=== PATIENT | male | born 1970 | race Caucasian/White ===

== ENCOUNTER 2017-06-21 01:49 | Emergency (ER) | payer OTHER ==
[~2017-06-21] VITALS: Ht 180.3 cm; Wt 90.0 kg
[~2017-06-21 01:49] MED LIST: CLEO300C2 PO; IBUP800T23 PO; Z.0.NO CURRENT MEDS
[2017-06-21 01:57] VITALS: BP 139/85; PULSE 85; RESP 18; TEMP 98.5; O2SAT 98
[2017-06-21 02:17] LABS: AUTOMATED NEUTROPHIL # 7.1 TH/MM3 (1.8-7.7); BASOPHIL % 0.4 % (0.0-2.0); EOSINOPHIL # 0.4 TH/MM3 (0-0.4); EOSINOPHIL % 4.1 % (0.0-4.0); HEMATOCRIT 39.1 % (39.0-51.0); HEMOGLOBIN 13.9 GM/DL (13.0-17.0); LYMPH % 19.1 % (9.0-44.0); MEAN CELL VOLUME 98.7 FL (80.0-100.0); MEAN CORPUSCULAR HGB CONC 35.4 % (32.0-36.0); MEAN PLATELET VOLUME 7.3 FL (7.0-11.0); MONO % 6.7 % (0.0-8.0); MONOCYTE # 0.7 TH/MM3 (0-0.9); NEUT % 69.7 % (16.0-70.0); PLATELET COUNT 305 TH/MM3 (150-450); RED BLOOD COUNT 3.96 MIL/MM3 (4.50-5.90); RED CELL DISTRIBUTION WIDTH 12.8 % (11.6-17.2); WHITE BLOOD COUNT 10.3 TH/MM3 (4.0-11.0)
[2017-06-21 02:41] LABS: ALBUMIN 3.2 GM/DL (3.4-5.0); ALT (GPT) 25 U/L (12-78); AST (GOT) 26 U/L (15-37); BICARBONATE 27.3 MEQ/L (21.0-32.0); BLOOD UREA NITROGEN 5 MG/DL (7-18); CALCIUM 8.1 MG/DL (8.5-10.1); CHLORIDE 104 MEQ/L (98-107); CREATININE 0.96 MG/DL (0.60-1.30); GLOMERULAR FILTRATION RATE 83 ML/MIN (>89); GLUCOSE,RANDOM 103 MG/DL (74-106); SODIUM (NA) 141 MEQ/L (136-145)
[2017-06-21 02:44] LABS: ACETAMINOPHEN LESS THAN 2.0 MCG/ML (10.0-30.0); ALKALINE PHOSPHATASE 41 U/L (45-117); TOTAL BILIRUBIN ADULT 0.7 MG/DL (0.2-1.0); TOTAL PROTEIN 6.3 GM/DL (6.4-8.2)
[2017-06-21 03:40] VITALS: BP 110/74; PULSE 67; RESP 18; TEMP 98.7; O2SAT 100
[2017-06-21] MEDS ORDERED: POTASSIUM CHLORIDE 10 MEQ CAP PO ONE (03:45)
--- NOTE | 2017-06-21 03:50 | PD ---
HPI Chief Complaint: Psychiatric Symptoms Time Seen by Provider: 03:44 Travel History International Travel<30 days: No Contact w/Intl Traveler<30days: No Traveled to known affect area: No History of Present Illness HPI 47-year-old white male presents emergency department under [place] act by PD. Patient had contacted police advising them that people were out after him. Patient informs me that he is playing a game called FONU2. He states that your name is placed on a list and people who were playing the game will attempt to change to down and hit you with a car, punch U, knock you down or do other various things to you. The patient here denies any drugs. Patient does drink alcohol on occasion. He does smoke cigarettes. He denies any acute medical complaints. No toxic ingestions. No suicidal or homicidal ideation. PFSH Past Medical History Medical History: Denies Significant Hx Diminished Hearing: No Tetanus Vaccination: Unknown Influenza Vaccination: No Past Surgical History Genitourinary Surgery: Yes (hernia) Social History Alcohol Use: Yes Tobacco Use: Yes Substance Use: No Allergies-Medications (Allergen,Severity, Reaction): Coded Allergies: No Known Allergies (Unverified , 09/08/12) Reported Meds & Prescriptions Reported Meds & Active Scripts Active Ibuprofen 800 Mg Tab 800 Mg PO Q6HPRN PRN Cleocin (Clindamycin HCl) 300 Mg Cap 300 Mg PO QID Reported No Current Meds (Miscellaneous Medication) Misc Review of Systems General / Constitutional: No: Fever Eyes: No: Visual changes HENT: No: Headaches Cardiovascular: No: Chest Pain or Discomfort Respiratory: No: Shortness of Breath Gastrointestinal: No: Abdominal Pain Genitourinary: No: Dysuria Musculoskeletal: No: Pain Skin: No Rash Neurologic: No: Weakness Psychiatric: Positive: Disorder of Thought, No: Anxiety, Depression, Suicidal Ideations, Mood Disorder, Substance Abuse, Homicidal Ideation Endocrine: No: Polydipsia Hematologic/Lymphatic: No: Easy Bruising Physical Exam Narrative GENERAL: Well-nourished, well-developed patient. SKIN: Warm and dry. HEAD: Normocephalic and atraumatic. EYES: No scleral icterus. No injection or drainage. ENT: No nasal drainage noted. Mucous membranes pink. Airway patent. NECK: Supple, trachea midline. Moves head freely without obvious discomfort. CARDIOVASCULAR: Regular rate and rhythm without murmurs, gallops, or rubs. RESPIRATORY: Breath sounds equal bilaterally. No accessory muscle use. GASTROINTESTINAL: Abdomen soft, non-tender, nondistended. EXTREMITIES: No cyanosis or edema. BACK: Nontender without obvious deformity. No CVA tenderness. NEURO: Patient is alert and oriented. no sensorimotor deficits. Nonfocal. Normal speech. PSYCH: Patient is acutely delusional. Data Data Last Documented VS Vital Signs Date Time Temp Pulse Resp B/P (MAP) Pulse Ox O2 Delivery O2 Flow Rate FiO2 06/21/17 03:40 98.7 67 18 110/74 (86) 100 Room Air Orders Orders Complete Blood Count With Diff (06/21/17 02:06) Comprehensive Metabolic Panel (06/21/17 02:06) Psych Screen (06/21/17 02:06) Drug Screen, Random Urine (06/21/17 02:06) Alcohol (Ethanol) (06/21/17 02:06) Salicylates (Aspirin) (06/21/17 02:06) Tylenol (Acetaminophen) (06/21/17 02:06) Potassium Chloride (Kcl) (06/21/17 03:45) Labs Laboratory Tests Test 06/21/17 02:02 06/21/17 02:10 White Blood Count 10.3 TH/MM3 Red Blood Count 3.96 MIL/MM3 Hemoglobin 13.9 GM/DL Hematocrit 39.1 % Mean Corpuscular Volume 98.7 FL Mean Corpuscular Hemoglobin 35.0 PG Mean Corpuscular Hemoglobin Concent 35.4 % Red Cell Distribution Width 12.8 % Platelet Count 305 TH/MM3 Mean Platelet Volume 7.3 FL Neutrophils (%) (Auto) 69.7 % Lymphocytes (%) (Auto) 19.1 % Monocytes (%) (Auto) 6.7 % Eosinophils (%) (Auto) 4.1 % Basophils (%) (Auto) 0.4 % Neutrophils # (Auto) 7.1 TH/MM3 Lymphocytes # (Auto) 2.0 TH/MM3 Monocytes # (Auto) 0.7 TH/MM3 Eosinophils # (Auto) 0.4 TH/MM3 Basophils # (Auto) 0.0 TH/MM3 CBC Comment DIFF FINAL Differential Comment Blood Urea Nitrogen 5 MG/DL Creatinine 0.96 MG/DL Random Glucose 103 MG/DL Total Protein 6.3 GM/DL Albumin 3.2 GM/DL Calcium Level 8.1 MG/DL Alkaline Phosphatase 41 U/L Aspartate Amino Transf (AST/SGOT) 26 U/L Alanine Aminotransferase (ALT/SGPT) 25 U/L Total Bilirubin 0.7 MG/DL Sodium Level 141 MEQ/L Potassium Level 3.1 MEQ/L Chloride Level 104 MEQ/L Carbon Dioxide Level 27.3 MEQ/L Anion Gap 10 MEQ/L Estimat Glomerular Filtration Rate 83 ML/MIN Salicylates Level LESS THAN 1.7 MG/DL Acetaminophen Level LESS THAN 2.0 MCG/ML Ethyl Alcohol Level LESS THAN 3 MG/DL Urine Opiates Screen NEG Urine Barbiturates Screen NEG Urine Amphetamines Screen NEG Urine Benzodiazepines Screen NEG Urine Cocaine Screen NEG Urine Cannabinoids Screen NEG MDM Medical Decision Making Medical Screen Exam Complete: Yes Emergency Medical Condition: Yes Medical Record Reviewed: Yes Interpretation(s) Laboratory Tests Test 06/21/17 02:02 06/21/17 02:10 White Blood Count 10.3 TH/MM3 Red Blood Count 3.96 MIL/MM3 Hemoglobin 13.9 GM/DL Hematocrit 39.1 % Mean Corpuscular Volume 98.7 FL Mean Corpuscular Hemoglobin 35.0 PG Mean Corpuscular Hemoglobin Concent 35.4 % Red Cell Distribution Width 12.8 % Platelet Count 305 TH/MM3 Mean Platelet Volume 7.3 FL Neutrophils (%) (Auto) 69.7 % Lymphocytes (%) (Auto) 19.1 % Monocytes (%) (Auto) 6.7 % Eosinophils (%) (Auto) 4.1 % Basophils (%) (Auto) 0.4 % Neutrophils # (Auto) 7.1 TH/MM3 Lymphocytes # (Auto) 2.0 TH/MM3 Monocytes # (Auto) 0.7 TH/MM3 Eosinophils # (Auto) 0.4 TH/MM3 Basophils # (Auto) 0.0 TH/MM3 CBC Comment DIFF FINAL Differential Comment Blood Urea Nitrogen 5 MG/DL Creatinine 0.96 MG/DL Random Glucose 103 MG/DL Total Protein 6.3 GM/DL Albumin 3.2 GM/DL Calcium Level 8.1 MG/DL Alkaline Phosphatase 41 U/L Aspartate Amino Transf (AST/SGOT) 26 U/L Alanine Aminotransferase (ALT/SGPT) 25 U/L Total Bilirubin 0.7 MG/DL Sodium Level 141 MEQ/L Potassium Level 3.1 MEQ/L Chloride Level 104 MEQ/L Carbon Dioxide Level 27.3 MEQ/L Anion Gap 10 MEQ/L Estimat Glomerular Filtration Rate 83 ML/MIN Salicylates Level LESS THAN 1.7 MG/DL Acetaminophen Level LESS THAN 2.0 MCG/ML Ethyl Alcohol Level LESS THAN 3 MG/DL Urine Opiates Screen NEG Urine Barbiturates Screen NEG Urine Amphetamines Screen NEG Urine Benzodiazepines Screen NEG Urine Cocaine Screen NEG Urine Cannabinoids Screen NEG Differential Diagnosis MDM: High Differential diagnoses: Schizophrenia, schizoaffective disorder, bipolar, anxiety, depression, adjustment reaction, mood disorder NOS, ODD, depressive disorder NOS, dementia, dementia with agitation, psychosis NOS, substance induced mood disorder, DMDD, Asperger syndrome, infection,electrolyte abnormality, malingering. Narrative Course Mental health screening discussed with the patient. Psychiatric screen ordered. Patient's potassium 3.1. He is given 40 mEq of potassium p.o. The patient has been medically cleared. This is medical clearance for psychiatric admission, hypokalemia Diagnosis Primary Impression: Medical clearance for psychiatric admission Additional Impression: Hypokalemia Condition: Stable Roqeu Thompson June 21, 2017 03:50
[2017-06-21 06:34] VITALS: BP 103/61; PULSE 65; RESP 18; TEMP 99.2; O2SAT 96
--- NOTE | 2017-06-21 09:58 | PD ---
History of Present Illness Chief Complaint: Psychiatric Symptoms Time Seen by Provider: 09:15 Travel History International Travel<30 Days: No Contact w/Intl Traveler<30days: No Known affected area: No Legal Status Legal Status: [place] Act [place] Act Signed By: Matt Fernandes History of Present Illness: Patient is a 47-year-old male unemployed and homeless. He was placed under a [place] act by law enforcement. [place] act states, "Juan J Isaacs had advised that people are following him which is part of a game. He believes that these people were hurt him. As advised that he was going to hurt himself before the others could do so. He then started to swing a metal merchandise look around." Patient reports that he was in [facility] and he was playing a game called catfish. He describes this game as a part of [employer] where you meet people. He states that you meet at a location and if the situation does not work out then the fish is set back out to swim. He states that yesterday he was angry because the catfish game was not working, so he called "911" to get some help. He was transported to [facility] and was there for 4 hours and then [place] [facility] [place] He is aware that he is being screen for his mental capacity. Collateral : I attempted to call Aliza Maggie at [phone] with no response. Chart reviewed and patient discussed with SOSA Verdugo. Patient is in a hospital gown in [facility]. He is alert and oriented. Appears well kept. His gait is steady and motor activity normal. He is irritable and anxious. His speech is normal for rate, tone and volume. He is pre-occupied with a game called "catfish." He gets annoyed when you attempt to ask him other questions because he wants to explain the rules to this game. His insight is fair and judgement is adequate. He endorses no suicidal or homicidal ideation. Patient states that he has never been under psychiatric care. He does admit to occasional alcohol. UDS is negative. He states that he has a Bachelor's degree and that he has been struggling with employment that has caused him to be homeless. He states that he has a strained relationship with his sister and she has a restraining order on him so that he can no longer live with her. He would not expand on the details of the restraining order , but does comply with the sanction. Patient has no past mental health history and he endorses no suicidal ideation. He states that he called "911" for help with his catfish game. Based on his presentation he is at low risk for self harm or harm to other, so I will lift the [place] Act. He states he does suffer from anxiety and will be given the information for [facility] so that he follow up to address his anxiety. Dx: Adjustment disorder; Anxiety disorder PFSH Past Medical History Medical History: Denies Significant Hx Diminished Hearing: No Tetanus Vaccination: Unknown Influenza Vaccination: No Past Surgical History Genitourinary Surgery: Yes (hernia) Psychiatric History Psychiatric History No past psychiatric history. Hx Psychiatric Treatment: Denies History of Inpatient Treatment: No Social History Hx Alcohol Use: Yes Hx Tobacco Use: Yes Hx Substance Use: No Substance Use Type: Alcohol Hx of Substance Use Treatment: No Allergies-Medications (Allergen,Severity, Reaction): Coded Allergies: No Known Allergies (Unverified , 09/08/12) Reported Meds & Prescriptions Reported Meds & Active Scripts Active Ibuprofen 800 Mg Tab 800 Mg PO Q6HPRN PRN Cleocin (Clindamycin HCl) 300 Mg Cap 300 Mg PO QID Reported No Current Meds (Miscellaneous Medication) [facility] Mental Status Examination Appearance: Appropriate Consciousness: Alert Orientation: x4 Motor Activity: Normal gait Speech: Unremarkable Language: Adequate Fund of Knowledge: Adequate Attention and Concentration: Adequate Memory: Unremarkable Mood: Irritable (he is preoccupied with game called catfish ) Affect: Anxious Thought Process & Associations: Intact Thought Content: Appropriate Hallucination Type: None Delusion Type: None Suicidal Ideation: No Suicidal Plan: No Suicidal Intention: No Homicidal Ideation: No Homicidal Plan: No Homicidal Intention: No Insight: Adequate Judgment: Adequate [facility] Medical Decision Making Medical Record Reviewed: Yes Assessment/Plan Patient is a 47 y.o male who was transported to [facility] under a [place] Act and [place] [facility] [place]. He is preoccupied with a game called "catfish." He states he was in [employer] and other people were not interested in his game, so he called "911" to obtain assistance from an officer. He has no past psychiatric history. He denies SI/HI. He is at low risk for self harm or harm to others, based on his presentatio will lift the [place] Act . He will be given information on [facility] to seek ongoing care with his Anxiety. Orders Orders Complete Blood Count With Diff (06/21/17 02:06) Comprehensive Metabolic Panel (06/21/17 02:06) Psych Screen (06/21/17 02:06) Drug Screen, Random Urine (06/21/17 02:06) Alcohol (Ethanol) (06/21/17 02:06) Salicylates (Aspirin) (06/21/17 02:06) Tylenol (Acetaminophen) (06/21/17 02:06) Potassium Chloride (Kcl) (06/21/17 03:45) Diet Regular Basic (06/21/17 Breakfast) Results Vital Signs Date Time Temp Pulse Resp B/P (MAP) Pulse Ox O2 Delivery O2 Flow Rate FiO2 06/21/17 06:34 99.2 65 18 103/61 (75) 96 Room Air 06/21/17 03:40 98.7 67 18 110/74 (86) 100 Room Air 06/21/17 01:57 98.5 85 18 139/85 (103) 98 Laboratory Tests Test 06/21/17 02:02 06/21/17 02:10 White Blood Count 10.3 Red Blood Count 3.96 Hemoglobin 13.9 Hematocrit 39.1 Mean Corpuscular Volume 98.7 Mean Corpuscular Hemoglobin 35.0 Mean Corpuscular Hemoglobin Concent 35.4 Red Cell Distribution Width 12.8 Platelet Count 305 Mean Platelet Volume 7.3 Neutrophils (%) (Auto) 69.7 Lymphocytes (%) (Auto) 19.1 Monocytes (%) (Auto) 6.7 Eosinophils (%) (Auto) 4.1 Basophils (%) (Auto) 0.4 Neutrophils # (Auto) 7.1 Lymphocytes # (Auto) 2.0 Monocytes # (Auto) 0.7 Eosinophils # (Auto) 0.4 Basophils # (Auto) 0.0 CBC Comment DIFF FINAL Differential Comment Blood Urea Nitrogen 5 Creatinine 0.96 Random Glucose 103 Total Protein 6.3 Albumin 3.2 Calcium Level 8.1 Alkaline Phosphatase 41 Aspartate Amino Transf (AST/SGOT) 26 Alanine Aminotransferase (ALT/SGPT) 25 Total Bilirubin 0.7 Sodium Level 141 Potassium Level 3.1 Chloride Level 104 Carbon Dioxide Level 27.3 Anion Gap 10 Estimat Glomerular Filtration Rate 83 Salicylates Level LESS THAN 1.7 Acetaminophen Level LESS THAN 2.0 Ethyl Alcohol Level LESS THAN 3 Urine Opiates Screen NEG Urine Barbiturates Screen NEG Urine Amphetamines Screen NEG Urine Benzodiazepines Screen NEG Urine Cocaine Screen NEG Urine Cannabinoids Screen NEG Diagnosis Primary Impression: Adjustment disorder with anxiety Disposition: 01 DISCHARGE HOME Condition: Stable Pippa Olivia June 21, 2017 09:57
--- NOTE | 2017-06-21 10:09 | PD ---
Physical Exam Date Seen by Provider: June 21, 2017 Time Seen by Provider: 10:08 Narrative 47-year-old male previously medically clear for psychiatric evaluation, has been seen by the psychiatrist and deemed psychiatrically stable for discharge. Patient is diagnosed with adjustment disorder with anxiety. Follow-up will be based on the psychiatric note. Patient remains medically stable for discharge at this time Data Data Last Documented VS Vital Signs Date Time Temp Pulse Resp B/P (MAP) Pulse Ox O2 Delivery O2 Flow Rate FiO2 06/21/17 06:34 99.2 65 18 103/61 (75) 96 Room Air Orders Orders Complete Blood Count With Diff (06/21/17 02:06) Comprehensive Metabolic Panel (06/21/17 02:06) Psych Screen (06/21/17 02:06) Drug Screen, Random Urine (06/21/17 02:06) Alcohol (Ethanol) (06/21/17 02:06) Salicylates (Aspirin) (06/21/17 02:06) Tylenol (Acetaminophen) (06/21/17 02:06) Potassium Chloride (Kcl) (06/21/17 03:45) Diet Regular Basic (06/21/17 Breakfast) Labs Laboratory Tests Test 06/21/17 02:02 06/21/17 02:10 White Blood Count 10.3 TH/MM3 Red Blood Count 3.96 MIL/MM3 Hemoglobin 13.9 GM/DL Hematocrit 39.1 % Mean Corpuscular Volume 98.7 FL Mean Corpuscular Hemoglobin 35.0 PG Mean Corpuscular Hemoglobin Concent 35.4 % Red Cell Distribution Width 12.8 % Platelet Count 305 TH/MM3 Mean Platelet Volume 7.3 FL Neutrophils (%) (Auto) 69.7 % Lymphocytes (%) (Auto) 19.1 % Monocytes (%) (Auto) 6.7 % Eosinophils (%) (Auto) 4.1 % Basophils (%) (Auto) 0.4 % Neutrophils # (Auto) 7.1 TH/MM3 Lymphocytes # (Auto) 2.0 TH/MM3 Monocytes # (Auto) 0.7 TH/MM3 Eosinophils # (Auto) 0.4 TH/MM3 Basophils # (Auto) 0.0 TH/MM3 CBC Comment DIFF FINAL Differential Comment Blood Urea Nitrogen 5 MG/DL Creatinine 0.96 MG/DL Random Glucose 103 MG/DL Total Protein 6.3 GM/DL Albumin 3.2 GM/DL Calcium Level 8.1 MG/DL Alkaline Phosphatase 41 U/L Aspartate Amino Transf (AST/SGOT) 26 U/L Alanine Aminotransferase (ALT/SGPT) 25 U/L Total Bilirubin 0.7 MG/DL Sodium Level 141 MEQ/L Potassium Level 3.1 MEQ/L Chloride Level 104 MEQ/L Carbon Dioxide Level 27.3 MEQ/L Anion Gap 10 MEQ/L Estimat Glomerular Filtration Rate 83 ML/MIN Salicylates Level LESS THAN 1.7 MG/DL Acetaminophen Level LESS THAN 2.0 MCG/ML Ethyl Alcohol Level LESS THAN 3 MG/DL Urine Opiates Screen NEG Urine Barbiturates Screen NEG Urine Amphetamines Screen NEG Urine Benzodiazepines Screen NEG Urine Cocaine Screen NEG Urine Cannabinoids Screen NEG MDM Medical Record Reviewed: Yes Supervised Visit with JALYN: Yes Narrative Course 47-year-old male previously medically clear for psychiatric evaluation, has been seen by the psychiatrist and deemed psychiatrically stable for discharge. Patient is diagnosed with adjustment disorder with anxiety. Follow-up will be based on the psychiatric note. Patient remains medically stable for discharge at this time Diagnosis Primary Impression: Adjustment disorder with anxiety Patient Instructions: General Instructions Disposition: DISCHARGE HOME Condition: Stable Nick Jimenez June 21, 2017 10:09
== END 2017-06-21 10:35 | disposition home or self-care (01) ==
LOC: NEPJ 01:49
DX: F43.22 Adjustment disorder with anxiety (principal); E87.6 Hypokalemia; Z59.0 Homelessness; Z72.0 Tobacco use; Z79.899 Other long term (current) drug therapy
CPT/HCPCS: 80053; 80307; 85025; 99283